=== PATIENT | female | born 1965 | race Asian ===

== ENCOUNTER → 2018-01-15 | Outpatient (CLI) | payer BC | END | disposition home or self-care (01) | LOC: NUC 07:16 | DX: E05.20 Thyrotoxicosis with toxic multinodular goiter without thyrotoxic crisis or storm (principal) | CPT/HCPCS: 78014; 78999; A9516 ==

== ENCOUNTER → 2018-01-29 | Outpatient (CLI) | payer BC | END | disposition home or self-care (01) | LOC: NUC 08:56 | DX: E05.90 Thyrotoxicosis, unspecified without thyrotoxic crisis or storm (principal) | CPT/HCPCS: 79005; A9517 ==